=== PATIENT | male | born 1995 | race Caucasian/White ===

== ENCOUNTER 2024-09-30 20:58 | Emergency (ER) | payer OTHER ==
[2024-09-30 21:13] VITALS: BP 125/73; PULSE 63; RESP 18; TEMP 98.2; BMI 23.3
[2024-09-30] MEDS: DOXYCYCLINE HYCLATE 100 MG CAPSULE PO ONE (22:11)
== END 2024-09-30 22:17 | disposition home or self-care (01) ==
LOC: FER 20:58
PROC: 0HQGXZZ Repair Left Hand Skin, External Approach (ICD-10-PCS; principal; 2024-09-30)
DX: S61.412A Laceration without foreign body of left hand, initial encounter (principal); W26.8XXA Contact with other sharp object(s), not elsewhere classified, initial encounter
CPT/HCPCS: 99283-25